=== PATIENT | male | born 1985 | race African-American/Black ===

== ENCOUNTER 2018-05-25 08:46 | Emergency (ER) | payer SELFPAY ==
[2018-05-25] MEDS ORDERED: Bupivacaine 0.5% 10 ML VIAL ONE (09:18)
[2018-05-25] MEDS ORDERED: Lidocaine 1% PF 5 ML VIAL ONE (09:19)
[2018-05-25] MEDS ORDERED: Bacitracin Zinc 1 Packet ONE (09:35)
== END 2018-05-25 09:52 | disposition home or self-care (01) ==
LOC: ERS 08:46
DX: L03.011 Cellulitis of right finger (principal)
CPT/HCPCS: 10060; J2001; J3490

== ENCOUNTER 2019-07-15 18:06 | Emergency (ER) | payer SELFPAY | END 2019-07-15 19:22 | disposition home or self-care (01) | LOC: ERS 18:06 | DX: B00.1 Herpesviral vesicular dermatitis (principal) | CPT/HCPCS: 99283 ==

== ENCOUNTER 2019-12-13 22:21 | Emergency (ER) | payer SELFPAY ==
[2019-12-13 22:46] LABS: Bilirubin Negative (Negative); Blood, Urine Negative (Negative); Clarity Clear (Clear); Glucose, Urine (Dipstick) Normal (Negative); Leukocyte Negative Leu/uL (Negative); Nitrite Negative (Negative); Protein, Urine (Dipstick) Negative (Neg-Trace)
[2019-12-13 22:56] LABS: Amphetamine Not Detected (NotDetected); Barbiturates Screen Not Detected (NotDetected); Benzodiazepine Screen Not Detected (NotDetected); Cocaine Metabolite Screen Not Detected (NotDetected); Medtox Control Line Valid? VALID (VALID); Medtox Reader # READER 4; Methadone Not Detected (NotDetected); Methamphetamine Not Detected (NotDetected); Opiate Screen Not Detected (NotDetected); Oxycodone Screen Not Detected (NotDetected); Phencyclidine (PCP) Not Detected (NotDetected); THC/Cannabinoid Screen Not Detected (NotDetected); Tricyclic Screen Not Detected (NotDetected)
[2019-12-13] MEDS ORDERED: Lorazepam 2 MG/ML VIAL ONE (23:04)
[2019-12-13 23:05] LABS: #Basophils 0.1 thou/uL (0.0-0.2); #Eosinphils 0.1 thou/uL (0.0-0.7); #Lymphocytes 2.3 thou/uL (1.20-3.40); #Monocytes 0.6 thou/uL (0.11-0.59); #Neutrophils 2.2 thou/uL (1.40-6.50); %Basophils 1.1 % (0.0-1.0); %Eosinophils 1.3 % (0.0-10.0); %Lymphocytes 43.5 % (21.0-51.0); %Monocytes 10.7 % (0.0-10.0); %Neutrophils 43.4 % (42.0-75.0); Hemoglobin 12.5 g/dL (14.0-18.0); Mean Corpuscular HGB CONC 32.3 g/dL (32.0-36.0); Mean Corpuscular Hemoglobin 25.3 pg (27.0-31.0); Mean Corpuscular Volume 78.4 fL (78.0-98.0); Mean Platelet Volume 8.8 fL (7.4-10.4); Platelet Count 229 thou/uL (130-400); RBC Distribution Width 11.5 % (11.5-14.5); Red Blood Cell (RBC) Count 4.93 mill/uL (4.70-6.10); White Blood Cell (WBC) Count 5.2 thou/uL (4.8-10.8)
[2019-12-13 23:26] LABS: ALT (SGPT) 42 U/L (8-55); AST (SGOT) 31 U/L (5-34); Albumin 3.8 g/dL (3.5-5.0); Alkaline Phosphatase 196 U/L (40-110); Anion Gap 10 mmol/L (10-20); BUN (Urea Nitrogen) 11 mg/dL (8.9-20.6); Bilirubin, Total 0.4 mg/dL (0.2-1.2); CK (CPK) 60 U/L (30-200); Calc. Creatinine Clearance 0 mL/min (70-130); Calcium 9.7 mg/dL (7.8-10.44); Carbon Dioxide 25 mmol/L (22-29); Chloride 106 mmol/L (98-107); Estimated GFR-MDRD Greater than 90; Globulin 3.2 g/dL (2.4-3.5); Glucose 104 mg/dL (70-105); Potassium 3.6 mmol/L (3.5-5.1); Sodium 137 mmol/L (136-145)
[2019-12-14 00:53] LABS: Acetaminophen Less than 6.0 mcg/mL (10.0-30.0); Alcohol Less than 10 mg/dL (Less than 10); Salicylate Less than 8.0 mg/dL (15.0-30.0)
--- NOTE | 2019-12-14 09:01 | CT ---
CT OF BRAIN PERFORMED WITHOUT CONTRAST ENHANCEMENT: History: Altered mental status. FINDINGS: The ventricular and cisternal system is within normal limits. There are no signs of intracerebral hem orrhage or extraaxial fluid collections. Mastoid air cells and visualized sinuses are clear. IMPRESSION: No acute intracranial abnormalities. POS: [facility]
--- NOTE | 2019-12-14 09:37 | RAD ---
PORTABLE CHEST: HISTORY: Syncope. FINDINGS: Heart size appears borderline enlarged considering the portable technique. There is a prominent pulm onary outflow tract which may indicate to the main pulmonary artery, less likely to be lymphadenopath y. The lungs are clear of any infiltrates. IMPRESSION: Borderline heart size with prominence to the aorticopulmonary window region which I favor would be re lated to a prominent pulmonary outflow tract rather than adenopathy. Clinical correlation with echoc ardiography may be helpful in further assessment. POS: [facility]
--- NOTE | 2019-12-19 10:17 | EKG ---
Test Reason : Blood Pressure : / mmHG Vent. Rate : 097 BPM Atrial Rate : 097 BPM P-R Int : 184 ms QRS Dur : 116 ms QT Int : 394 ms P-R-T Axes : 081 115 070 degrees QTc Int : 500 ms Normal sinus rhythm Right atrial enlargement Right axis deviation Pulmonary disease pattern Left ventricular hypertrophy with QRS widening and repolarization abnormality Prolonged QT Abnormal ECG Confirmed by KARLA FLORES ([id number]), news assignment editor ALYSHA WALTON ([id number]) on 12/19/2019 10:16:54 AM Referred By: Confirmed By:KARLA FLORES
== END 2019-12-14 02:10 | disposition home or self-care (01) ==
LOC: ERS 22:21
DX: R44.0 Auditory hallucinations (principal)
CPT/HCPCS: 70450; 71045; 80053; 80306; 80307; 81003; 82550; 84484; 85025; 93005; 96361; 96374; J2060

== ENCOUNTER 2020-05-01 10:35 | Emergency (ER) | payer SELFPAY ==
[2020-05-01] MEDS ORDERED: Ketorolac Tromethamine 30 MG/ML VIAL ONE (11:06)
[2020-05-01 11:15] LABS: #Basophils 0.1 thou/uL (0.0-0.2); #Eosinphils 0.1 thou/uL (0.0-0.7); #Lymphocytes 1.4 thou/uL (1.20-3.40); #Monocytes 0.5 thou/uL (0.11-0.59); #Neutrophils 3.4 thou/uL (1.40-6.50); %Basophils 2.1 % (0.0-1.0); %Eosinophils 1.6 % (0.0-10.0); %Lymphocytes 25.6 % (21.0-51.0); %Monocytes 9.5 % (0.0-10.0); %Neutrophils 61.2 % (42.0-75.0); Hemoglobin 12.8 g/dL (14.0-18.0); Mean Corpuscular HGB CONC 32.2 g/dL (32.0-36.0); Mean Corpuscular Hemoglobin 25.2 pg (27.0-31.0); Mean Corpuscular Volume 78.2 fL (78.0-98.0); Mean Platelet Volume 8.8 fL (7.4-10.4); Platelet Count 246 thou/uL (130-400); RBC Distribution Width 12.1 % (11.5-14.5); White Blood Cell (WBC) Count 5.5 thou/uL (4.8-10.8)
--- NOTE | 2020-05-01 11:21 | RAD ---
XR Chest 1 View Portable HISTORY: Chest pain COMPARISON: 12/13/2019 FINDINGS: The heart size is borderline. Soft tissue prominence in the aorticopulmonary window is stab le. The lungs are well expanded without focal areas of consolidation, pneumothorax or pleural effusions. IMPRESSION: Stable exam No radiographic evidence of acute cardiopulmonary process. Evaluation with contrast-enhanced CT scan of the chest would be helpful.
[2020-05-01 11:40] LABS: ALT (SGPT) 30 U/L (8-55); AST (SGOT) 25 U/L (5-34); Albumin 3.7 g/dL (3.5-5.0); Alkaline Phosphatase 177 U/L (40-110); Anion Gap 9 mmol/L (10-20); BUN (Urea Nitrogen) 12 mg/dL (8.9-20.6); Bilirubin, Total 0.6 mg/dL (0.2-1.2); CK (CPK) 63 U/L (30-200); Calc. Creatinine Clearance 0 mL/min (70-130); Calcium 9.9 mg/dL (7.8-10.44); Carbon Dioxide 28 mmol/L (22-29); Chloride 107 mmol/L (98-107); Globulin 3.6 g/dL (2.4-3.5); Glucose 102 mg/dL (70-105); Lipase 16 U/L (8-78); Potassium 3.9 mmol/L (3.5-5.1); Protein, Total 7.3 g/dL (6.0-8.3); Sodium 140 mmol/L (136-145)
[2020-05-01 12:23] LABS: HIV (1/2) Antibody/Antigen Non-Reactive (NonReactive); HIV 1/2 INDEX 0.11 S/CO (<1.00)
--- NOTE | 2020-05-13 13:41 | EKG ---
Test Reason : CP Blood Pressure : / mmHG Vent. Rate : 106 BPM Atrial Rate : 106 BPM P-R Int : 160 ms QRS Dur : 118 ms QT Int : 392 ms P-R-T Axes : 037 105 040 degrees QTc Int : 520 ms Sinus tachycardia Right atrial enlargement Right ventricular hypertrophy with repolarization abnormality Left ventricular hypertrophy with QRS widening and repolarization abnormality Prolonged QT Abnormal ECG Confirmed by DOV SHIPLEY DO ([id number]), sound editor ALYSHA WALTON ([id number]) on 05/13/2020 1:41:09 PM Referred By: Confirmed By:DOV SHIPLEY DO
== END 2020-05-01 13:23 | disposition home or self-care (01) ==
LOC: ERS 10:35
DX: R07.89 Other chest pain (principal)
CPT/HCPCS: 71045; 80053; 82550; 83690; 84484; 85025; 87389; 93005; 96374; J1885

== ENCOUNTER 2020-06-28 18:36 | Emergency (ER) | payer SELFPAY | END 2020-06-28 19:35 | disposition home or self-care (01) | LOC: ERS 18:36 | DX: N52.9 Male erectile dysfunction, unspecified (principal); L70.9 Acne, unspecified | CPT/HCPCS: 99281 ==

== ENCOUNTER 2020-10-13 10:00 | Emergency (ER) | payer SELFPAY | END 2020-10-13 11:06 | disposition home or self-care (01) | LOC: ERS 10:00 | DX: R01.1 Cardiac murmur, unspecified (principal) | CPT/HCPCS: 99281 ==

== ENCOUNTER 2021-10-01 16:12 | Inpatient (IN) | payer SELFPAY ==
[2021-10-01 16:55] LABS: Hemoglobin 12.1 g/dL (14.0-18.0); Mean Corpuscular HGB CONC 30.8 g/dL (32.0-36.0); Mean Corpuscular Hemoglobin 24.6 pg (27.0-31.0); Mean Corpuscular Volume 79.8 fL (78.0-98.0); Mean Platelet Volume 8.2 fL (7.4-10.4); Platelet Count 210 thou/uL (130-400); RBC Distribution Width 12.2 % (11.5-14.5); Red Blood Cell (RBC) Count 4.92 mill/uL (4.70-6.10); White Blood Cell (WBC) Count 3.8 thou/uL (4.8-10.8)
[2021-10-01 17:09] LABS: ALT (SGPT) 39 U/L (8-55); AST (SGOT) 25 U/L (5-34); Acetaminophen Less than 10.0 mcg/mL (10.0-30.0); Albumin 3.6 g/dL (3.5-5.0); Alcohol Less than 10 mg/dL (Less than 10); Alkaline Phosphatase 145 U/L (40-110); Anion Gap 12 mmol/L (10-20); BUN (Urea Nitrogen) 16 mg/dL (8.9-20.6); Bilirubin, Total 0.7 mg/dL (0.2-1.2); Calc. Creatinine Clearance 0 mL/min (70-130); Calcium 9.4 mg/dL (7.8-10.44); Carbon Dioxide 25 mmol/L (22-29); Chloride 108 mmol/L (98-107); Globulin 3.6 g/dL (2.4-3.5); Glucose 83 mg/dL (70-105); Magnesium 1.7 mg/dL (1.6-2.6); Potassium 3.9 mmol/L (3.5-5.1); Protein, Total 7.2 g/dL (6.0-8.3); Salicylate Less than 8.0 mg/dL (15.0-30.0); Sodium 141 mmol/L (136-145)
[2021-10-01 17:15] LABS: Hypochromia SLIGHT = 6-15 cells (100X) (0-5/hpf); Lymphocytes 42 % (21-51); MDiff Complete? YES; Monocytes 10 % (0-10); Neutrophil 40 % (42-75); Ovalocytes SLIGHT = 2-5 cells (100X) (0-1/hpf); Platelet Morphology Comment Appears Adequate; Polychromasia SLIGHT = 2-3 cells (100X) (0-2/hpf); Reactive Lymphocytes 8 % (0-10)
[2021-10-01] MEDS ORDERED: Propranolol HCl 20 MG TAB PO SCH ×2 (20:00→23:00)
[2021-10-01] MEDS ORDERED: Methimazole 5 MG TAB PO SCH (20:00)
[2021-10-01 20:11] LABS: Bilirubin Negative (Negative); Blood, Urine Negative (Negative); Clarity Clear (Clear); Glucose, Urine (Dipstick) >=1000 mg/dL (Negative); Ketone, Urine Negative (Negative); Leukocyte Negative Leu/uL (Negative); Nitrite Negative (Negative); Protein, Urine (Dipstick) 10 mg/dL (Neg-Trace); Specific Gravity, Urine 1.023 (1.002-1.036); Urobilinogen 12 mg/dL (Less than 2)
[2021-10-01 20:20] LABS: Amphetamine Not Detected (NotDetected); Barbiturates Screen Not Detected (NotDetected); Benzodiazepine Screen Not Detected (NotDetected); Cocaine Metabolite Screen Not Detected (NotDetected); Methadone Not Detected (NotDetected); Methamphetamine Not Detected (NotDetected); Opiate Screen Not Detected (NotDetected); Oxycodone Screen Not Detected (NotDetected); Phencyclidine (PCP) Not Detected (NotDetected); THC/Cannabinoid Screen Not Detected (NotDetected); Tricyclic Screen Not Detected (NotDetected)
[2021-10-01] MEDS ORDERED: Acetaminophen 325 MG TAB PO PRN (20:29)
[2021-10-01] MEDS ORDERED: Calcium Carbonate 500 MG ChewTAB PO PRN (20:29)
[2021-10-01 21:09] VITALS: BMI 15.4
[2021-10-01 21:16] LABS: Iron 78 ug/dL (65-175); Iron Binding Capacity, Total 214 mcg/dL (261-462)
[2021-10-01 21:32] LABS: Ferritin 592.33 ng/mL (22-322)
[2021-10-01 21:39] LABS: Hemoglobin A1c 5.5 % (4.0-6.0)
[2021-10-02 00:08] LABS: Phosphorus 2.7 mg/dL (2.3-4.7)
[2021-10-02 00:40] LABS: HBCM Index 0.06 S/CO (0-0.79); HBSAB Concentration Less than 8.00 mIU/mL; HBSAg Index 0.24 S/CO (0-0.99); HIV (1/2) Antibody/Antigen Non-Reactive (NonReactive); Hep B Surf AB Non-Reactive (NonReactive); Hep B Surf Ag Non-Reactive S/CO (NonReactive); Hep C IgG Ab Non-Reactive (NonReactive); Hep C Index 0.07 S/CO (0-0.79); Hepatitis B Core IgM Abs Non-Reactive (NonReactive)
[2021-10-02] MEDS: Propranolol HCl 20 MG TAB PO SCH ×4 (03:09→21:10)
[2021-10-02 04:38] LABS: #Lymphocytes 2.5 thou/uL (1.20-3.40); #Monocytes 0.8 thou/uL (0.11-0.59); #Neutrophils 2.6 thou/uL (1.40-6.50); %Basophils 0.5 % (0.0-1.0); %Eosinophils 0.8 % (0.0-10.0); %Lymphocytes 41.3 % (21.0-51.0); %Neutrophils 44.5 % (42.0-75.0); Hemoglobin 10.8 g/dL (14.0-18.0); Mean Corpuscular HGB CONC 30.5 g/dL (32.0-36.0); Mean Corpuscular Hemoglobin 24.8 pg (27.0-31.0); Mean Corpuscular Volume 81.1 fL (78.0-98.0); Mean Platelet Volume 8.4 fL (7.4-10.4); Platelet Count 210 thou/uL (130-400); RBC Distribution Width 12.5 % (11.5-14.5); Red Blood Cell (RBC) Count 4.35 mill/uL (4.70-6.10); White Blood Cell (WBC) Count 5.9 thou/uL (4.8-10.8)
[2021-10-02 04:59] LABS: ALT (SGPT) 34 U/L (8-55); AST (SGOT) 20 U/L (5-34); Albumin 3.3 g/dL (3.5-5.0); Alkaline Phosphatase 134 U/L (40-110); Anion Gap 10 mmol/L (10-20); BUN (Urea Nitrogen) 15 mg/dL (8.9-20.6); Bilirubin, Total 0.4 mg/dL (0.2-1.2); Calc. Creatinine Clearance 105 mL/min (70-130); Calcium 9.2 mg/dL (7.8-10.44); Carbon Dioxide 26 mmol/L (22-29); Chloride 108 mmol/L (98-107); Globulin 3.2 g/dL (2.4-3.5); Glucose 110 mg/dL (70-105); Potassium 3.9 mmol/L (3.5-5.1); Protein, Total 6.5 g/dL (6.0-8.3); Sodium 140 mmol/L (136-145)
[2021-10-02] MEDS ORDERED: Methimazole 5 MG TAB PO SCH (09:00)
[2021-10-02 11:49] LABS: SARS-CoV-2 PCR by NAA Not Detected (NotDetected)
[2021-10-02] MEDS ORDERED: Ondansetron PF 4 MG/2 ML Vial IVP SCH (19:15)
[2021-10-03] MEDS: Ondansetron PF 4 MG/2 ML Vial IVP PRN ×2 (01:53→18:56)
[2021-10-03] MEDS: Propranolol HCl 20 MG TAB PO SCH ×4 (02:51→20:55)
[2021-10-03 04:19] LABS: #Lymphocytes 1.2 thou/uL (1.20-3.40); #Monocytes 0.4 thou/uL (0.11-0.59); #Neutrophils 3.3 thou/uL (1.40-6.50); %Basophils 0.3 % (0.0-1.0); %Eosinophils 0.5 % (0.0-10.0); %Lymphocytes 23.8 % (21.0-51.0); %Monocytes 8.4 % (0.0-10.0); Hemoglobin 11.3 g/dL (14.0-18.0); Mean Corpuscular HGB CONC 31.7 g/dL (32.0-36.0); Mean Corpuscular Hemoglobin 25.6 pg (27.0-31.0); Mean Corpuscular Volume 80.8 fL (78.0-98.0); Mean Platelet Volume 8.3 fL (7.4-10.4); Platelet Count 190 thou/uL (130-400); RBC Distribution Width 12.2 % (11.5-14.5); White Blood Cell (WBC) Count 4.9 thou/uL (4.8-10.8)
[2021-10-03 04:50] LABS: ALT (SGPT) 35 U/L (8-55); AST (SGOT) 21 U/L (5-34); Albumin 3.4 g/dL (3.5-5.0); Alkaline Phosphatase 149 U/L (40-110); Anion Gap 11 mmol/L (10-20); BUN (Urea Nitrogen) 16 mg/dL (8.9-20.6); Bilirubin, Total 0.7 mg/dL (0.2-1.2); Calc. Creatinine Clearance 105 mL/min (70-130); Calcium 9.2 mg/dL (7.8-10.44); Carbon Dioxide 25 mmol/L (22-29); Chloride 104 mmol/L (98-107); Globulin 3.3 g/dL (2.4-3.5); Glucose 128 mg/dL (70-105); Magnesium 1.7 mg/dL (1.6-2.6); Phosphorus 3.5 mg/dL (2.3-4.7); Potassium 3.9 mmol/L (3.5-5.1); Protein, Total 6.7 g/dL (6.0-8.3); Sodium 136 mmol/L (136-145)
[2021-10-03] MEDS: Methimazole 5 MG TAB PO SCH ×2 (09:07→20:55)
[2021-10-03 15:37] LABS: Syphilis Antibody Nonreactive (Nonreactive); Syphilis Antibody Index 0.12 S/CO (<1.00 Non-Reactive)
[2021-10-04] MEDS: Propranolol HCl 20 MG TAB PO SCH ×3 (03:57→16:06)
[2021-10-04 06:58] LABS: Hemoglobin 10.9 g/dL (14.0-18.0); Mean Corpuscular HGB CONC 31.4 g/dL (32.0-36.0); Mean Corpuscular Hemoglobin 25.4 pg (27.0-31.0); Mean Corpuscular Volume 80.8 fL (78.0-98.0); Mean Platelet Volume 8.4 fL (7.4-10.4); Platelet Count 198 thou/uL (130-400); RBC Distribution Width 12.2 % (11.5-14.5); Red Blood Cell (RBC) Count 4.28 mill/uL (4.70-6.10); White Blood Cell (WBC) Count 5.6 thou/uL (4.8-10.8)
[2021-10-04 07:13] LABS: Anion Gap 11 mmol/L (10-20); BUN (Urea Nitrogen) 16 mg/dL (8.9-20.6); Calc. Creatinine Clearance 117 mL/min (70-130); Calcium 9.1 mg/dL (7.8-10.44); Carbon Dioxide 28 mmol/L (22-29); Chloride 104 mmol/L (98-107); Glucose 95 mg/dL (70-105); Magnesium 1.7 mg/dL (1.6-2.6); Phosphorus 3.2 mg/dL (2.3-4.7); Potassium 3.7 mmol/L (3.5-5.1); Sodium 139 mmol/L (136-145)
[2021-10-04 07:42] LABS: Eosinophils 2 % (0-10); Hypochromia SLIGHT = 6-15 cells (100X) (0-5/hpf); Lymphocytes 31 % (21-51); MDiff Complete? YES; Monocytes 10 % (0-10); Neutrophil 57 % (42-75); Platelet Morphology Comment Appears Adequate; Polychromasia SLIGHT = 2-3 cells (100X) (0-2/hpf)
[2021-10-04] MEDS: Methimazole 5 MG TAB PO SCH (08:59)
[2021-10-04 09:21] LABS: Free T4 (Free Thyroxine) 1.75 ng/dL (0.70-1.48); Thyroid Stimulating Hormone Less than 0.0025 uIU/mL (0.35-4.94)
[2021-10-04 14:14] LABS: Hemoglobin A2 3.9 % (1.8-3.2); Hemoglobin F 0 % (0.0-2.0); Interpretation Note: (.)
[2021-10-04 16:04] VITALS: BP 120/60; TEMP 97.9
== END 2021-10-04 18:18 | DRG 644 ==
LOC: ERS 16:12 → EEVIPCON 20:03 → 2SW 20:03 → OBSVTOIN 10-02 09:53
PROVIDERS: ADMIT Emergency Medicine; ATTEND Emergency Medicine
DX: E05.90 Thyrotoxicosis, unspecified without thyrotoxic crisis or storm (principal); R64 Cachexia; Z68.1 Body mass index [BMI] 19.9 or less, adult; E05.80 Other thyrotoxicosis without thyrotoxic crisis or storm; D64.9 Anemia, unspecified; R01.1 Cardiac murmur, unspecified; F31.9 Bipolar disorder, unspecified; F20.9 Schizophrenia, unspecified; F41.9 Anxiety disorder, unspecified; Z20.822 Contact with and (suspected) exposure to COVID-19; Z91.19 Patient's noncompliance with other medical treatment and regimen
CPT/HCPCS: 36415; 70450; 71045; 80048; 80053; 80306; 80307; 81003; 82728; 83021; 83036; 83540; 83550; 83735; 83880; 84100; 84238; 84439; 84443; 84481; 84484; 85025; 85060; 86705; 86706; 86780; 86803; 87340; 87389; 93005; 93306; G0378; J2405; U0003; U0005

== ENCOUNTER 2023-09-02 13:58 | Inpatient (IN) | payer SELFPAY ==
[2023-09-02 15:06] LABS: #Monocytes 0.6 thou/uL (0.11-0.59); #Neutrophils 6.3 thou/uL (1.40-6.50); %Eosinophils 0.1 % (0.0-10.0); %Lymphocytes 14.9 % (21.0-51.0); %Monocytes 6.8 % (0.0-10.0); Hematocrit 41.3 % (42.0-52.0); Hemoglobin 13.3 g/dL (14.0-18.0); Mean Corpuscular HGB CONC 32.2 g/dL (32.0-36.0); Mean Corpuscular Hemoglobin 24.6 pg (27.0-31.0); Mean Corpuscular Volume 76.3 fl (78.0-98.0); Mean Platelet Volume 10.4 fL (7.4-10.4); Platelet Count 270 10x3/uL (130-400); RBC Distribution Width 13.2 % (11.5-14.5); Red Blood Cell (RBC) Count 5.41 mill/uL (4.70-6.10); White Blood Cell (WBC) Count 8.1 10x3/uL (4.8-10.8)
[2023-09-02 15:24] LABS: ALT (SGPT) 37 U/L (8-55); AST (SGOT) 31 U/L (5-34); Albumin 3.8 g/dL (3.5-5.0); Alkaline Phosphatase 179 U/L (40-110); Anion Gap 14 mmol/L (10-20); BUN (Urea Nitrogen) 16 mg/dL (8.9-20.6); Bilirubin, Total 0.7 mg/dL (0.2-1.2); CK (CPK) 266 U/L (30-200); Calc. Creatinine Clearance 0 mL/min (70-130); Calcium 9.1 mg/dL (7.8-10.44); Carbon Dioxide 23 mmol/L (22-29); Chloride 106 mmol/L (98-107); Estimated GFR 118; Globulin 3.4 g/dL (2.4-3.5); Glucose 92 mg/dL (70-105); Protein, Total 7.2 g/dL (6.0-8.3); Sodium 139 mmol/L (136-145)
[2023-09-02 15:25] LABS: Acetaminophen Less than 10 mcg/mL (10.0-30.0); Alcohol Less than 10.0 mg/dL (Less than 10); Salicylate Less than 8.0 mg/dL (15.0-30.0)
[2023-09-02 15:29] LABS: Troponin I 0.173 ng/mL (< 0.028)
[2023-09-02 15:46] LABS: Amphetamine Not Detected (NotDetected); Barbiturates Screen Not Detected (NotDetected); Benzodiazepine Screen Not Detected (NotDetected); Cocaine Metabolite Screen Not Detected (NotDetected); Methadone Not Detected (NotDetected); Methamphetamine Not Detected (NotDetected); Opiate Screen Not Detected (NotDetected); Oxycodone Screen Not Detected (NotDetected); Phencyclidine (PCP) Not Detected (NotDetected); THC/Cannabinoid Screen Not Detected (NotDetected); Tricyclic Screen Not Detected (NotDetected)
[2023-09-02] MEDS ORDERED: Senokot S 8.6-50 MG TAB PO PRN (16:48)
[2023-09-02] MEDS ORDERED: Ondansetron ODT 4 MG TAB PO PRN (16:48)
[2023-09-02] MEDS ORDERED: Bisacodyl 10 MG SUPP PR PRN (16:48)
[2023-09-02] MEDS ORDERED: Guaifenesin DM 100-10/5 ML UDCUP PO PRN (16:48)
[2023-09-02] MEDS ORDERED: Bisacodyl 5 MG TAB PO PRN (16:48)
[2023-09-02] MEDS ORDERED: Calcium Carbonate 500 MG ChewTAB PO PRN (16:48)
[2023-09-02] MEDS ORDERED: Acetaminophen 325 MG TAB PO PRN (16:48)
[2023-09-02] MEDS ORDERED: Ondansetron PF 4 MG/2 ML Vial IVP PRN (16:48)
[2023-09-02] MEDS ORDERED: HYDROcodone/Acetaminophen 5/325 mg Tablet PO PRN (16:48)
[2023-09-02 16:52] LABS: Free T4 (Free Thyroxine) 3.42 ng/dL (0.70-1.48)
[2023-09-02 19:24] LABS: Critical Call Chem Troponin I NUR.TNO @1924; Troponin I 0.201 ng/mL (< 0.028)
[2023-09-02] MEDS: SODIUM CHLORIDE 0.9% IVPB SCH (19:43)
[2023-09-02] MEDS: Sodium Chloride 0.9% 1,000 ML IV SCH (19:43)
[2023-09-02] MEDS: PROPRANOLOL HCL IVPB SCH (19:43)
[2023-09-02 20:12] VITALS: BMI 22.4
[2023-09-02] MEDS: Propranolol 10 MG TAB PO SCH (21:43)
[2023-09-02] MEDS: Methimazole 5 MG TAB PO SCH ×2 (21:43→21:44)
[2023-09-03 04:10] VITALS: BP 126/68; TEMP 98.7
[2023-09-03 04:52] LABS: #Monocytes 0.6 thou/uL (0.11-0.59); #Neutrophils 1.8 thou/uL (1.40-6.50); %Basophils 0.5 % (0.0-1.0); %Lymphocytes 40.6 % (21.0-51.0); %Monocytes 14.6 % (0.0-10.0); %Neutrophils 43.1 % (42.0-75.0); Hematocrit 39.7 % (42.0-52.0); Hemoglobin 12.6 g/dL (14.0-18.0); Mean Corpuscular HGB CONC 31.7 g/dL (32.0-36.0); Mean Corpuscular Hemoglobin 24.8 pg (27.0-31.0); Mean Corpuscular Volume 78.1 fl (78.0-98.0); Mean Platelet Volume 10.8 fL (7.4-10.4); Platelet Count 271 10x3/uL (130-400); RBC Distribution Width 13.2 % (11.5-14.5); Red Blood Cell (RBC) Count 5.08 mill/uL (4.70-6.10); White Blood Cell (WBC) Count 4.2 10x3/uL (4.8-10.8)
[2023-09-03 05:16] LABS: ALT (SGPT) 33 U/L (8-55); AST (SGOT) 33 U/L (5-34); Albumin 3.4 g/dL (3.5-5.0); Alkaline Phosphatase 171 U/L (40-110); Anion Gap 14 mmol/L (10-20); BUN (Urea Nitrogen) 11 mg/dL (8.9-20.6); Bilirubin, Total 1.4 mg/dL (0.2-1.2); Calc. Creatinine Clearance 134 mL/min (70-130); Calcium 9.3 mg/dL (7.8-10.44); Carbon Dioxide 18 mmol/L (22-29); Chloride 108 mmol/L (98-107); Estimated GFR 122; Globulin 3.4 g/dL (2.4-3.5); Glucose 73 mg/dL (70-105); Potassium 4.8 mmol/L (3.5-5.1); Protein, Total 6.8 g/dL (6.0-8.3); Sodium 135 mmol/L (136-145)
[2023-09-03] MEDS ORDERED: Enoxaparin 40 MG (0.4 mL) SYRINGE SC SCH (09:00)
== END 2023-09-03 07:55 | disposition left against medical advice (07) | DRG 645 ==
LOC: EEVIPCON 13:58 → ERS 13:58 → 2SW 16:48
PROVIDERS: ADMIT Internal Medicine; ATTEND Family Medicine
DX: E05.90 Thyrotoxicosis, unspecified without thyrotoxic crisis or storm (principal); F20.9 Schizophrenia, unspecified; Z91.148 Patient's other noncompliance with medication regimen for other reason; Z79.899 Other long term (current) drug therapy
CPT/HCPCS: 36415; 80053; 80306; 80307; 82550; 84439; 84443; 84481; 84484; 85025; 93005; 96365; J1800; J7050

== ENCOUNTER 2024-02-16 22:12 | Inpatient (IN) | payer OTHER, SELFPAY ==
[2024-02-16 23:02] LABS: #Basophils Less than 0.03 10x3/uL (0.0-0.2); %Eosinophils 0.9 % (0.0-10.0); %Monocytes 13.8 % (0.0-10.0); %Neutrophils 55.3 % (42.0-75.0); Hematocrit 39.7 % (42.0-52.0); Mean Corpuscular HGB CONC 32.7 g/dL (32.0-36.0); Mean Corpuscular Hemoglobin 24.2 pg (27.0-31.0); Mean Corpuscular Volume 73.8 fL (78.0-98.0); Mean Platelet Volume 10.7 fL (7.4-10.4); Platelet Count 243 10x3/uL (130-400); RBC Distribution Width 13.3 % (11.5-14.5); Red Blood Cell (RBC) Count 5.38 mill/uL (4.70-6.10)
[2024-02-16 23:16] LABS: Acetaminophen Less than 10 mcg/mL (Less than 10); Alcohol Less than 10.0 mg/dL (Less than 10); Salicylate Less than 8.0 mg/dL (Less than 8.0)
[2024-02-16 23:19] LABS: Troponin I 0.073 ng/mL (< 0.028)
[2024-02-16 23:22] LABS: ALT (SGPT) 22 U/L (8-55); AST (SGOT) 18 U/L (5-34); Albumin 3.3 g/dL (3.5-5.0); Alkaline Phosphatase 187 U/L (40-110); Anion Gap 10 mmol/L (10-20); BUN (Urea Nitrogen) 10 mg/dL (8.9-20.6); Bilirubin, Total 0.4 mg/dL (0.2-1.2); CK (CPK) 169 U/L (30-200); Calc. Creatinine Clearance 0 mL/min (70-130); Calcium 8.9 mg/dL (7.8-10.44); Carbon Dioxide 23 mmol/L (22-29); Chloride 110 mmol/L (98-107); Estimated GFR 121; Globulin 3.8 g/dL (2.4-3.5); Glucose 151 mg/dL (70-105); Potassium 2.3 mmol/L (3.5-5.1); Protein, Total 7.1 g/dL (6.0-8.3); Sodium 141 mmol/L (136-145)
[2024-02-16 23:28] LABS: Microcytosis SLIGHT = 6-15 cells HPF (0-5); Platelet Adequacy Comment Platelets Normal; Polychromasia SLIGHT = 2-3 cells HPF (0-2); RBC Morphology Within Normal Limits
[2024-02-16] MEDS ORDERED: Potassium Chloride 20 MEQ (100 mL) BAG ONE (23:40)
[2024-02-16 23:47] LABS: Free T4 (Free Thyroxine) 2.65 ng/dL (0.70-1.48); Thyroid Stimulating Hormone Less than 0.0083 uIU/mL (0.35-4.94)
[2024-02-17] MEDS ORDERED: Acetaminophen 325 MG TAB PO PRN (01:35)
[2024-02-17] MEDS ORDERED: Potassium Chloride 20 MEQ TAB ONE ×2 (03:01→09:19)
[2024-02-17] MEDS ORDERED: Potassium Chloride 20 MEQ (100 mL) BAG ONE ×2 (03:01→09:19)
[2024-02-17] MEDS: Potassium Chloride 20 MEQ TAB PO SCH ×2 (03:07→09:20)
[2024-02-17] MEDS: Potassium Chloride 20 MEQ in Premix 1 BAG IVPB SCH ×2 (03:24→09:20)
[2024-02-17] MEDS: Methimazole 10 MG TAB PO SCH (03:43)
[2024-02-17] MEDS: Propranolol 10 MG TAB PO SCH ×2 (03:43→10:05)
[2024-02-17 04:20] LABS: #Basophils Less than 0.03 10x3/uL (0.0-0.2); #Eosinphils Less than 0.03 10x3/uL (0.0-0.7); %Basophils 0.2 % (0.0-1.0); %Eosinophils 0.4 % (0.0-10.0); %Lymphocytes 22.5 % (21.0-51.0); %Monocytes 15.7 % (0.0-10.0); Hematocrit 37.3 % (42.0-52.0); Mean Corpuscular HGB CONC 32.2 g/dL (32.0-36.0); Mean Corpuscular Hemoglobin 24.3 pg (27.0-31.0); Mean Corpuscular Volume 75.7 fL (78.0-98.0); Mean Platelet Volume 10.9 fL (7.4-10.4); Platelet Count 227 10x3/uL (130-400); RBC Distribution Width 13.2 % (11.5-14.5); Red Blood Cell (RBC) Count 4.93 mill/uL (4.70-6.10)
[2024-02-17 04:28] LABS: Magnesium 1.3 mg/dL (1.6-2.6)
[2024-02-17 04:29] LABS: Acetaminophen Less than 10 mcg/mL (Less than 10); Alcohol Less than 10.0 mg/dL (Less than 10); Salicylate Less than 8.0 mg/dL (Less than 8.0)
[2024-02-17 04:33] LABS: Troponin I 0.101 ng/mL (< 0.028)
[2024-02-17 04:54] LABS: Anion Gap 11 mmol/L (10-20); BUN (Urea Nitrogen) 9 mg/dL (8.9-20.6); Calc. Creatinine Clearance 0 mL/min (70-130); Calcium 8.2 mg/dL (7.8-10.44); Carbon Dioxide 20 mmol/L (22-29); Chloride 110 mmol/L (98-107); Estimated GFR 129; Glucose 123 mg/dL (70-105); Potassium 2.2 mmol/L (3.5-5.1); Sodium 139 mmol/L (136-145)
[2024-02-17] MEDS ORDERED: Magnesium 2 GM/50 ML BAG (IN WATER) ONE (06:21)
[2024-02-17] MEDS: Magnesium 2 GM/50 ML(in water) 1 GM in Premix 1 BAG IVPB SCH (06:31)
[2024-02-17 06:44] LABS: Troponin I 0.088 ng/mL (< 0.028)
[2024-02-17] MEDS ORDERED: Enoxaparin 40 MG (0.4 mL) SYRINGE SC SCH (09:00)
[2024-02-17 09:39] VITALS: BMI 18.8
[2024-02-17] MEDS ORDERED: Dexamethasone 10 MG/ML VIAL ONE (10:01)
[2024-02-17] MEDS: Dexamethasone 10 MG/ML VIAL SLOW IVP SCH (10:05)
[2024-02-17 10:27] LABS: Amphetamine Not Detected (NotDetected); Barbiturates Screen Not Detected (NotDetected); Benzodiazepine Screen Not Detected (NotDetected); Cocaine Metabolite Screen Not Detected (NotDetected); Methadone Not Detected (NotDetected); Methamphetamine Not Detected (NotDetected); Opiate Screen Not Detected (NotDetected); Oxycodone Screen Not Detected (NotDetected); Phencyclidine (PCP) Not Detected (NotDetected); THC/Cannabinoid Screen Not Detected (NotDetected); Tricyclic Screen Not Detected (NotDetected)
[2024-02-17 11:31] LABS: Bacteria/HPF None Seen HPF (None Seen); Bilirubin Negative (Negative); Blood, Urine Negative (Negative); CAUTI Indications for Culture Alt mental st,lethar; Clarity Clear (Clear); Glucose, Urine (Dipstick) Normal (Negative); Ketone, Urine Negative (Negative); Leukocyte Negative Leu/uL (Negative); Nitrite Negative (Negative); Protein, Urine (Dipstick) Negative (Neg-Trace); RBC/HPF 0-3 HPF (0-3); Specific Gravity, Urine 1.011 (1.002-1.036); Squamous Epithelial None Seen HPF (0-3); Urobilinogen Normal mg/dL (Less than 2); WBC/HPF 0-3 HPF (0-3)
[2024-02-17 11:40] LABS: Urine Culture Reflex No No
[2024-02-17 12:44] LABS: Magnesium 2.1 mg/dL (1.6-2.6); Potassium 4.9 mmol/L (3.5-5.1)
[2024-02-17] MEDS: Potassium Chloride 20 MEQ in Lactated Ringer's 1,000 ML IV SCH (13:00)
[2024-02-17 16:27] LABS: Anion Gap 9 mmol/L (10-20); BUN (Urea Nitrogen) 8 mg/dL (8.9-20.6); Calc. Creatinine Clearance 118 mL/min (70-130); Calcium 9.7 mg/dL (7.8-10.44); Carbon Dioxide 20 mmol/L (22-29); Chloride 112 mmol/L (98-107); Estimated GFR 123; Glucose 123 mg/dL (70-105); Potassium 5.7 mmol/L (3.5-5.1); Sodium 135 mmol/L (136-145)
[2024-02-17 19:16] LABS: Anion Gap 15 mmol/L (10-20); BUN (Urea Nitrogen) 9 mg/dL (8.9-20.6); Calc. Creatinine Clearance 113 mL/min (70-130); Calcium 9.8 mg/dL (7.8-10.44); Carbon Dioxide 14 mmol/L (22-29); Chloride 110 mmol/L (98-107); Estimated GFR 121; Glucose 218 mg/dL (70-105); Potassium 5.3 mmol/L (3.5-5.1); Sodium 134 mmol/L (136-145)
[2024-02-17] MEDS: Methimazole 5 MG TAB PO SCH (21:34)
[2024-02-18 04:09] LABS: #Basophils Less than 0.03 10x3/uL (0.0-0.2); #Eosinphils Less than 0.03 10x3/uL (0.0-0.7); %Monocytes 6.1 % (0.0-10.0); %Neutrophils 79.7 % (42.0-75.0); Hematocrit 42.8 % (42.0-52.0); Hemoglobin 13.6 g/dL (14.0-18.0); Mean Corpuscular HGB CONC 31.8 g/dL (32.0-36.0); Mean Corpuscular Hemoglobin 24.1 pg (27.0-31.0); Mean Corpuscular Volume 75.8 fL (78.0-98.0); Platelet Count 323 10x3/uL (130-400); RBC Distribution Width 13.2 % (11.5-14.5); Red Blood Cell (RBC) Count 5.65 mill/uL (4.70-6.10)
[2024-02-18 04:35] LABS: Anion Gap 14 mmol/L (10-20); BUN (Urea Nitrogen) 13 mg/dL (8.9-20.6); Calc. Creatinine Clearance 120 mL/min (70-130); Calcium 9.8 mg/dL (7.8-10.44); Carbon Dioxide 20 mmol/L (22-29); Chloride 110 mmol/L (98-107); Estimated GFR 124; Glucose 144 mg/dL (70-105); Potassium 5.1 mmol/L (3.5-5.1); Sodium 139 mmol/L (136-145)
[2024-02-18] MEDS ORDERED: Methimazole 5 MG TAB PO SCH (09:00)
[2024-02-18] MEDS: Dexamethasone 4 mg/ml Vial SLOW IVP SCH (09:09)
[2024-02-18 12:50] LABS: Thyroid Peroxidase IgG Ab Greater than 1542.0 IU/mL (<25 Normal)
[2024-02-19 06:13] LABS: Anion Gap 12 mmol/L (10-20); BUN (Urea Nitrogen) 17 mg/dL (8.9-20.6); Calc. Creatinine Clearance 128 mL/min (70-130); Calcium 9.2 mg/dL (7.8-10.44); Carbon Dioxide 25 mmol/L (22-29); Chloride 106 mmol/L (98-107); Estimated GFR 121; Glucose 99 mg/dL (70-105); Potassium 4.2 mmol/L (3.5-5.1); Sodium 139 mmol/L (136-145)
[2024-02-19 06:18] LABS: #Basophils Less than 0.03 10x3/uL (0.0-0.2); #Eosinphils Less than 0.03 10x3/uL (0.0-0.7); %Lymphocytes 18.9 % (21.0-51.0); %Monocytes 6.4 % (0.0-10.0); %Neutrophils 74.6 % (42.0-75.0); Hemoglobin 13.8 g/dL (14.0-18.0); Mean Corpuscular HGB CONC 32.1 g/dL (32.0-36.0); Mean Corpuscular Hemoglobin 23.5 pg (27.0-31.0); Mean Corpuscular Volume 73.1 fL (78.0-98.0); Mean Platelet Volume 11.1 fL (7.4-10.4); Platelet Count 351 10x3/uL (130-400); RBC Distribution Width 13.2 % (11.5-14.5); Red Blood Cell (RBC) Count 5.88 mill/uL (4.70-6.10)
[2024-02-19] MEDS: Propranolol 10 MG TAB PO SCH (16:20)
[2024-02-20 04:48] LABS: #Basophils Less than 0.03 10x3/uL (0.0-0.2); %Basophils 0.2 % (0.0-1.0); %Eosinophils 0.5 % (0.0-10.0); %Lymphocytes 54.7 % (21.0-51.0); %Monocytes 8.5 % (0.0-10.0); %Neutrophils 35.9 % (42.0-75.0); Hematocrit 44.7 % (42.0-52.0); Hemoglobin 14.3 g/dL (14.0-18.0); Mean Corpuscular Hemoglobin 23.8 pg (27.0-31.0); Mean Corpuscular Volume 74.4 fL (78.0-98.0); Mean Platelet Volume 10.9 fL (7.4-10.4); Platelet Count 326 10x3/uL (130-400); RBC Distribution Width 13.2 % (11.5-14.5); Red Blood Cell (RBC) Count 6.01 mill/uL (4.70-6.10)
[2024-02-20 05:05] LABS: Anion Gap 12 mmol/L (10-20); BUN (Urea Nitrogen) 18 mg/dL (8.9-20.6); Calc. Creatinine Clearance 133 mL/min (70-130); Carbon Dioxide 22 mmol/L (22-29); Chloride 107 mmol/L (98-107); Estimated GFR 121; Glucose 118 mg/dL (70-105); Potassium 4.2 mmol/L (3.5-5.1); Sodium 137 mmol/L (136-145)
[2024-02-20] MEDS: Propranolol HCl 20 MG TAB PO SCH (08:32)
[2024-02-20] MEDS ORDERED: Propranolol 10 MG TAB PO SCH (09:00)
[2024-02-20 11:30] VITALS: BP 115/62; TEMP 98.4
== END 2024-02-20 14:00 | DRG 644 ==
LOC: EEVIPCON 22:12 → ERS 22:12 → ERHOLD 02-17 01:41 → IMCU/EMU 02-17 15:06 → 2NO 02-18 22:18
PROVIDERS: ADMIT Student in an Organized Health Care Education/Training Program; ATTEND Student in an Organized Health Care Education/Training Program
DX: E05.00 Thyrotoxicosis with diffuse goiter without thyrotoxic crisis or storm (principal); I24.89 Other forms of acute ischemic heart disease; F20.9 Schizophrenia, unspecified; E03.9 Hypothyroidism, unspecified; E87.6 Hypokalemia; R01.1 Cardiac murmur, unspecified; F41.9 Anxiety disorder, unspecified; I44.0 Atrioventricular block, first degree; E87.5 Hyperkalemia; F12.10 Cannabis abuse, uncomplicated; F10.90 Alcohol use, unspecified, uncomplicated; I45.10 Unspecified right bundle-branch block; F31.9 Bipolar disorder, unspecified; W19.XXXA Unspecified fall, initial encounter; Z98.890 Other specified postprocedural states
CPT/HCPCS: 36415; 70450; 76536; 80048; 80053; 80306; 80307; 81001; 82550; 83735; 84439; 84443; 84445; 84481; 84484; 85025; 86376; 86800; 93005; 93010; 93306; 96365; 96366; J1100; J3475; J3480; J7120